=== PATIENT | female | born 1940 | race Caucasian/White ===

== ENCOUNTER 2017-11-26 17:55 | Emergency (ER) | payer MEDICAID ==
[~2017-11-26] VITALS: Ht 152.4 cm; Wt 49.0 kg
[2017-11-26 18:10] VITALS: Ht 152.4 cm; Wt 49.0 kg
[2017-11-26 19:24] VITALS: BP 156/74
== END 2017-11-26 19:24 | disposition home or self-care (01) ==
LOC: ED 17:55
DX: M54.12 Radiculopathy, cervical region (principal); M25.511 Pain in right shoulder; I10 Essential (primary) hypertension; E11.9 Type 2 diabetes mellitus without complications